=== PATIENT | female | born 1950 | race Caucasian/White ===

== ENCOUNTER 2022-01-01 05:55 | Day surgery (SDC) | payer MEDICARE ==
[2021-12-30 14:30] VITALS: BMI 34.9
[2022-01-01] MEDS ORDERED: SODIUM CHLORIDE 0.9% 1,000 ML IV SCH (05:56)
[2022-01-01] MEDS ORDERED: SODIUM CHLORIDE 0.9% 500 ML 500 ML IV ONE (06:08)
[2022-01-01 06:46] LABS: INR 1.4 (<1.2); Prothrombin Time 14.9 sec (9.0-12.0)
[2022-01-01 06:48] LABS: Calcium 9.1 mg/dL (8.4-10.2); Potassium 4.3 mmol/L (3.5-5.1)
[2022-01-01] MEDS ORDERED: PROPOFOL 10 MG/ML 20 ML VIAL IV ONE (07:31)
[2022-01-01] MEDS ORDERED: HEPARIN SODIUM,PORCINE 10,000 UNIT/ML 1 ML VIAL ONE (07:31)
[2022-01-01] MEDS ORDERED: LIDOCAINE 2% INJ 20 MG/ML (2 ML VIAL) ONE (07:31)
[2022-01-01] MEDS ORDERED: APIXABAN 5 MG TAB PO ONE (08:00)
[2022-01-01 08:01] VITALS: TEMP 97.4
[2022-01-01 08:41] VITALS: RESP 16
[2022-01-01 09:09] VITALS: PULSE 55
[2022-01-01 09:25] VITALS: BP 125/73
--- NOTE | 2022-01-08 18:18 | P.TEE ---
Description of Procedure(s): Procedure performed: Transesophageal Echocardiogram with color flow doppler, pulsed wave doppler and continuous wave doppler, moderate conscious sedation Moderate conscious sedation: Moderate conscious sedation was supplied by anesthesia, see separate report. Complications: none Indications: Afib PROCEDURE: After the risks, benefits and alternatives of the above mentioned procedure was explained in detail with the patient, informed consent was obtained. Patient was brought to the lab in a fasting state. Patient was given sedation by anesthesia, see separate report. The throat was sprayed with Hurricane to anesthetize the throat. A lubricated Omni probe was then introduced into the esophagus and stomach and multiple views were obtained. 2D echo with color flow doppler, pulsed wave doppler and continuous wave doppler was utilized. Agitated saline bubbles were injected to assess for any intra- atrial shunt. The probe was then removed. Patient was cardioverted to sinus rhythm with 200J x 1. Patient tolerated the procedure well. Patient was transferred to the post procedure area in stable and satisfactory condition. FINDINGS: 1. The aortic valve is tricuspid and function normally. 2. The mitral valve appears be normal with mild to moderate mitral regurgitation. 3. Tricuspid valve appears to be normal however has malcopatation with severe tricuspid regurgitation. 4. The interatrial septum is intact. No evidence of PFO. 5. Left atrial appendage is free of clot. 6. Left ventricular function is severely decreased with EF 30%.
== END 2022-01-01 09:46 | disposition home or self-care (01) ==
LOC: CATHCVL 05:55 → MERGE 07:30 → CATHCVL 09:46
PROVIDERS: ATTEND Internal Medicine
DX: I48.19 Other persistent atrial fibrillation (principal); I08.1 Rheumatic disorders of both mitral and tricuspid valves; I25.10 Atherosclerotic heart disease of native coronary artery without angina pectoris; I11.0 Hypertensive heart disease with heart failure; I50.23 Acute on chronic systolic (congestive) heart failure; Z20.822 Contact with and (suspected) exposure to COVID-19; I42.8 Other cardiomyopathies; Z79.01 Long term (current) use of anticoagulants; Z82.49 Family history of ischemic heart disease and other diseases of the circulatory system; Z79.890 Hormone replacement therapy; Z79.899 Other long term (current) drug therapy; E78.5 Hyperlipidemia, unspecified; J44.9 Chronic obstructive pulmonary disease, unspecified; F17.210 Nicotine dependence, cigarettes, uncomplicated; Z98.51 Tubal ligation status; Z97.2 Presence of dental prosthetic device (complete) (partial)
CPT/HCPCS: 93312; 93320; 93325; 92960; 80048; 85610; 87635; J1644; J2704; J2001; 93005

== ENCOUNTER → 2022-09-24 | Outpatient (CLI) | payer MEDICARE ==
[2022-09-24 14:43] LABS: HCT 43.4 % (37.2-46.3); HGB 13.8 g/dL (12.0-15.0); MCH 29.7 pg (27.0-32.0); MCHC 31.8 g/dL (32.0-37.0); MCV 93.3 fL (80.0-97.0); Mean Platelet Volume 12.3 fL (9.5-12.2); NRBC Per 100 WBC 0 /100 WBCS (0.0-0.0); Platelet Count 249 X 10*3/uL (140-440); RBC 4.65 X 10*6/uL (4.10-5.20); RDW 13.2 % (11.5-14.5); WBC 6.32 X 10*3/uL (4.50-10.00)
[2022-09-24 15:30] LABS: Anion Gap 10.5 mmol/L (10.00-18.00); Blood Urea Nitrogen 16.8 mg/dL (9.0-27.0); Carbon Dioxide 27.3 mmol/L (20.0-27.5); Non-African American GFR(CKD) 80.2 (60.0-200.0); Potassium 4.2 mmol/L (3.5-5.5)
== END | disposition home or self-care (01) ==
LOC: LABPAT 09:43
PROVIDERS: ATTEND Internal Medicine Clinical Cardiac Electrophysiology
DX: Z01.812 Encounter for preprocedural laboratory examination (principal); I10 Essential (primary) hypertension; I48.11 Longstanding persistent atrial fibrillation
CPT/HCPCS: 80051; 82565; 84520; 85027

== ENCOUNTER → 2022-12-17 | Day surgery (SDC) | payer MEDICARE ==
[~2022-12-17] MED LIST: LACTATED RINGERS 1,000 ML IV ONE; LIDOCAINE 2% INJ 20 MG/ML (2 ML VIAL) ONE; PROPOFOL 10 MG/ML 20 ML VIAL IV ONE
[2022-12-17 08:52] LABS: African American GFR (CKD) >90 (>60 ml/min/1.73 sqM); Anion Gap 6 mmol/L; Blood Urea Nitrogen 18 mg/dL (7-17); Calcium 9.4 mg/dL (8.4-10.2); Carbon Dioxide 28 mmol/L (22-30); Chloride 107 mmol/L (98-107); Glucose 84 mg/dL (74-99); Non-African American GFR(CKD) 84 (>60 ml/min/1.73 sqM); Potassium 4.2 mmol/L (3.5-5.1); Sodium 141 mmol/L (137-145)
[2022-12-17 09:11] VITALS: RESP 16; TEMP 98
[2022-12-17 10:04] VITALS: BP 112/73; PULSE 58
--- NOTE | 2022-12-17 11:50 | P.PCN ---
Description of Procedure: Procedure performed: Synchronized cardioversion Moderate conscious sedation: Moderate conscious sedation was supplied by anesthesia, see separate report Complications: none Indications: Atrial fibrillation History: Patient is pleasant 72-year-old female with history of persistent atrial fibrillation who has not missed any doses of her anticoagulation last 30 days. She was recommended to undergo synchronized cardioversion. PROCEDURE: After the risks, benefits and alternatives of the above mentioned procedure was explained in detail with the patient, informed consent was obtained. Patient was brought to the lab in a fasting state. Patient was given sedation. Patient had received 30 days of anticoagulation without fail and therefore no SHIRA was recommended. Syncope denies cardioversion was performed with 200 J 1 with resultant sinus rhythm. Patient tolerated the procedure well. Patient was transferred to the post procedure area in stable and satisfactory condition.
== END ==
LOC: OR 07:28
PROVIDERS: ATTEND Internal Medicine
DX: I48.19 Other persistent atrial fibrillation (principal); I42.9 Cardiomyopathy, unspecified; I25.10 Atherosclerotic heart disease of native coronary artery without angina pectoris; I11.0 Hypertensive heart disease with heart failure; I50.20 Unspecified systolic (congestive) heart failure; Z82.49 Family history of ischemic heart disease and other diseases of the circulatory system; E03.9 Hypothyroidism, unspecified; K21.9 Gastro-esophageal reflux disease without esophagitis; Z79.01 Long term (current) use of anticoagulants; Z79.899 Other long term (current) drug therapy
CPT/HCPCS: 92960; 80048; J2704; J2001

== ENCOUNTER 2023-04-07 09:42 | Emergency (ER) | payer OTHER, MEDICARE ==
[2023-04-07 09:53] VITALS: TEMP 98.1
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
[2023-04-07] MEDS ORDERED: KETOROLAC 15 MG/ML 1 ML VIAL IVP STA (10:37)
--- NOTE | 2023-04-07 10:51 | XR ---
EXAMINATION TYPE: XR tibia fibula LT, XR knee complete LT DATE OF EXAM: 04/07/2023 10:31 AM INDICATION: Patient age:Female; 72 years old; Reason for study: fall; COMPARISON: None TECHNIQUE: Right tibia/fibula was examined in AP and lateral projections. Right knee was then frontal lateral and oblique views. FINDINGS/IMPRESSION: There is a comminuted fracture of the proximal left tibia involving the metadiaphysis region with pos sible extension into lateral tibial plateau. There is a knee joint effusion. The fibula is intact. Th e distal tibia and foot structures visualized appear intact.
[2023-04-07] MEDS ORDERED: ACET/COD 300 MG/30 MG STARTER PACK 6 TAB BTL PO STA (11:53)
[2023-04-07] MEDS ORDERED: amLODIPine 5 MG TAB PO STA (12:05)
[2023-04-07] MEDS ORDERED: lisinopriL 20 MG TAB PO STA (12:05)
[2023-04-07] MEDS ORDERED: carvediloL 12.5 MG TAB PO STA (12:05)
[2023-04-07 12:21] VITALS: BP 186/95; PULSE 76; RESP 20
== END 2023-04-07 12:37 | disposition home or self-care (01) ==
LOC: EC 09:42
DX: S82.202A Unspecified fracture of shaft of left tibia, initial encounter for closed fracture (principal); I10 Essential (primary) hypertension; I48.91 Unspecified atrial fibrillation; E07.9 Disorder of thyroid, unspecified; Z79.890 Hormone replacement therapy; Z79.899 Other long term (current) drug therapy; W10.8XXA Fall (on) (from) other stairs and steps, initial encounter
CPT/HCPCS: 73590; 73562; 99284; 96374; J1885